=== PATIENT | male | born 1960 | race Two or more races ===

== ENCOUNTER 2023-02-08 06:59 | Day surgery (SDC) | payer OTHER ==
[~2023-02-08] VITALS: Ht 172.7 cm; Wt 72.6 kg
[~2023-02-08 06:59] MED LIST: CLONAZEPAM1 MG PO
[2023-02-08] MEDS ORDERED: POLY119PG PO (19:43)
[2023-02-08] MEDS ORDERED: NEURONTIN300 MG PO (19:43)
[2023-02-08] MEDS ORDERED: PERCOCET 5-3251 EACH PO (19:43)
== END 2023-02-08 21:25 | disposition home or self-care (01) ==
LOC: CIR.AMB 06:59
PROVIDERS: ATTEND Surgery
DX: K40.90 Unilateral inguinal hernia, without obstruction or gangrene, not specified as recurrent (principal); Z20.822 Contact with and (suspected) exposure to COVID-19
CPT/HCPCS: 49650; C1781

== ENCOUNTER 2023-10-23 10:48 | Inpatient (IN) | payer OTHER ==
[~2023-10-23] VITALS: Ht 172.7 cm; Wt 69.4 kg
[~2023-10-23 10:48] MED LIST changes: +NEURONTIN300 MG PO; +PERCOCET 5-3251 EACH PO; +POLY119PG PO
--- NOTE | 2023-10-23 11:06 | NUR ---
SE RECIBE PTE ALERTA Y ORIENTADO X3 EN AMBULANCIA EL MISMO REFIRIENDO QUE EL ESTEBAN DE JOSUE SE CALLO EN EL HOGAR CAUSANDO TRAUMA EN CADERA IZQUIERDA. AL MOMENTO PRESENTA DOLOR MEAGHAN. SE REALIZAN VITALES Y SE ACOMODA EN MARGARITA.
[2023-10-23] MEDS ORDERED: MORPHINE SULFATE 4 MG/ML VIAL IV ONE (11:15)
[2023-10-23] MEDS ORDERED: 0.9 % SODIUM CHLORIDE 1,000 ML IV SCH ×2 (11:15→17:45)
--- NOTE | 2023-10-23 11:49 | NUR ---
PTE EVALUADO POR DR LEA SIL[place] MED A PTE SE EDUCA A PTE SOBRE EL DON Y PTE REFIERE ENTENDER. SE LLEVA ACABO ORDENES BAJO MEDIDAS ACEPTICAS. SE REALIZA EKG Y SE LA NENA MUESTRAS DE LABS. PTE PEND A RESULTADOS DE LABS.
[2023-10-23 11:51] LABS: HEMATOCRIT 38.1 % (39.0-48.0); HEMOGLOBIN 13.4 g/dL (13-16.00); MEAN CORPUSCULAR HGB CONC 35.3 g/dl (32.0-36.0); RED BLOOD COUNT 3.74 M/uL (4.00-6.00)
[2023-10-23 11:53] LABS: PLATELET COUNT 72 K/uL (150-450)
[2023-10-23 12:06] LABS: INR 1.1; PARTIAL THROMBOPLASTIN TIME 30.9 SECONDS (22.0-34.0); PROTHROMBIN TIME 11.5 SECONDS (9.0-11.5)
[2023-10-23 12:32] LABS: ALBUMIN 3.3 gm/dL (3.4-5.0); BILIRUBIN TOTAL 2.63 mg/dL (0.3-1.2); CALCIUM 8.8 mg/dL (8.5-10.1); CREATININE SERUM 0.63 mg/dL (0.70-1.30); GFR 128.63; GLOBULINA 3.1 G/DL (2.4-3.5); POTASSIUM 3.55 mEq/L (3.5-5.1); TOTAL PROTEIN 6.4 gm/dL (6.4-8.2)
--- NOTE | 2023-10-23 13:15 | NUR ---
SE COLOCA CATETER JENKINS BAJO MEDIDAS ESTERILES. CATETER JENKINS PATENTE Y DRENANDO A GRAVEDAD.
--- NOTE | 2023-10-23 14:08 | NUR ---
DR HAYES Y DR TATE ORDENAN NUEVO TRATAMIENTO MEDICO SE LE ORIETNA A PACIENTE SOBRE EL MISMO Y VERBALIZA ENTENDER, SE LA NENA MUESTRAS BAJO MEDIDAS ASEPTICAS, PENDIENTE TERESA DE CULTIVOS NASALES YA QUE LOS MISMOS NO SE REALIZAN POR ER.
[2023-10-23] MEDS ORDERED: ACETAMINOPHEN 325 MG TABLET PO SCH (14:33)
[2023-10-23] MEDS ORDERED: TRAMADOL HCL 50 MG TABLET PO PRN (14:45)
[2023-10-23 14:49] LABS: ALBUMIN 3.2 gm/dL (3.4-5.0); BILIRUBIN TOTAL 2.6 mg/dL (0.3-1.2); BILIRUBIN,CONJUGATED 0.86 mg/dL (0.0-0.2); BILIRUBIN,UNCONJUGATED 1.74 mg/dL (0.0-0.6); TOTAL PROTEIN 6.5 gm/dL (6.4-8.2)
[2023-10-23] MEDS ORDERED: ACETAMINOPHEN 500 MG GEL..CAP PO PRN (17:45)
[2023-10-23] MEDS ORDERED: ONDANSETRON HCL 4 MG in 0.9 % SODIUM CHLORIDE 50 ML IV PRN (17:45)
[2023-10-23] MEDS ORDERED: CLONAZEPAM 0.5 MG TABLET PO SCH (21:00)
[2023-10-23 21:27] LABS: PH,URINE 7.5 (5.0-8.0); URINE APPEARANCE Clear; URINE BILIRRUBIN Negative (NEGATIVE); URINE BLOOD Moderate; URINE COLOR Orange; URINE GLUCOSE Negative (NEGATIVE); URINE LEUKOCYTE Trace; URINE NITRATE Negative; URINE PROTEIN Trace (NEGATIVE)
[2023-10-23 21:31] LABS: URINE BACTERIA 16.3 uL (0.0-1933); URINE RBC 276.5 uL (0.0-20.8); URINE WBC 7.4 uL (0.0-23.2)
[2023-10-23 21:37] LABS: COL EPI 231 SECONDS (82-175)
[2023-10-23 22:03] LABS: COL ADP 209 SECONDS (56-102)
[2023-10-24] MEDS ORDERED: PANTOPRAZOLE SODIUM 40 MG/VIAL VIAL IV SCH (09:00)
[2023-10-24] MEDS ORDERED: MORPHINE SULFATE 2 MG/ML CARTRIDGE IV PRN (19:15)
[2023-10-24] MEDS ORDERED: CLONAZEPAM 1 MG TABLET PO SCH (21:00)
[2023-10-24 22:05] LABS: HEMATOCRIT 35.8 % (39.0-48.0); HEMOGLOBIN 12.8 g/dL (13-16.00); MEAN CELL VOLUME 102.8 fL (80.0-100.00); MEAN CORPUSCULAR HEMOGLOBIN 36.8 pg (27.00-32.0); MEAN CORPUSCULAR HGB CONC 35.8 g/dl (32.0-36.0); RED BLOOD COUNT 3.48 M/uL (4.00-6.00); RED CELL DISTRIBUTION WIDTH 12.8 % (11.5-14.5)
[2023-10-24 22:09] LABS: PLATELET COUNT 89 K/uL (150-450)
[2023-10-24 22:30] LABS: COL EPI 165 SECONDS (82-175)
[2023-10-25 06:41] LABS: COL EPI 180 SECONDS (82-175)
[2023-10-25 08:42] LABS: COL ADP 123 SECONDS (56-102)
[2023-10-25] MEDS ORDERED: MULTIVIT-MIN/IRON FUM/FOLIC AC 1 TAB TABLET PO SCH (11:25)
[2023-10-25] MEDS ORDERED: IRON FUM,PS/FOLIC/BCOMP,C NO.9 1 CAP CAPSULE PO SCH (11:25)
[2023-10-25] MEDS ORDERED: VITAMIN B COMPLEX 1 EACH PO SCH (11:26)
[2023-10-25 12:03] LABS: COL ADP 106 SECONDS (56-102); COL EPI 195 SECONDS (82-175)
[2023-10-25 23:07] LABS: MEAN CELL VOLUME 101.5 fL (80.0-100.00); MEAN CORPUSCULAR HGB CONC 36.3 g/dl (32.0-36.0); RED BLOOD COUNT 3.25 M/uL (4.00-6.00); RED CELL DISTRIBUTION WIDTH 13.1 % (11.5-14.5)
[2023-10-25 23:16] LABS: PLATELET COUNT 117 K/uL (150-450)
[2023-10-25 23:17] LABS: MEAN CORPUSCULAR HEMOGLOBIN 36.9 pg (27.00-32.0)
[2023-10-26 11:28] LABS: ALBUMIN 3.3 gm/dL (3.4-5.0); BILIRUBIN TOTAL 2.02 mg/dL (0.3-1.2); CALCIUM 9.2 mg/dL (8.5-10.1); CREATININE SERUM 0.66 mg/dL (0.70-1.30); GFR 121.9; GLOBULINA 3.2 G/DL (2.4-3.5); POTASSIUM 3.3 mEq/L (3.5-5.1); TOTAL PROTEIN 6.5 gm/dL (6.4-8.2)
[2023-10-27] MEDS ORDERED: POLYMYXIN B SULFATE 500,000 U VIAL IR ONE (10:45)
[2023-10-27] MEDS ORDERED: TRANEXAMIC ACID 100MG/1ML (1000MG) AMPUL IV ONE ×2 (10:45)
[2023-10-27] MEDS ORDERED: CEFAZOLIN SODIUM 1,000 MG VIAL IV ONE (10:45)
[2023-10-27] MEDS ORDERED: VANCOMYCIN HCL 1,000 MG VIAL IR ONE (10:45)
[2023-10-27] MEDS ORDERED: CEFAZOLIN SODIUM 2,000 MG in 0.9 % SODIUM CHLORIDE 100 ML IV SCH (11:00)
[2023-10-27] MEDS ORDERED: PANTOPRAZOLE SODIUM 40 MG TABLET.DR PO SCH (13:11)
[2023-10-27] MEDS ORDERED: PROMETHAZINE HCL 50 MG/ML AMPUL IM PRN (13:15)
[2023-10-27] MEDS ORDERED: TRAMADOL HCL 50 MG TABLET PO PRN (13:15)
[2023-10-27] MEDS ORDERED: SODIUM CHLORIDE 0.45 % 1,000 ML IV SCH (13:15)
[2023-10-27] MEDS ORDERED: ONDANSETRON HCL 2 MG/ML VIAL IV PRN (13:15)
[2023-10-27] MEDS ORDERED: MEPERIDINE HCL/PF 50 MG/ML VIAL IM PRN (13:15)
[2023-10-27] MEDS ORDERED: ONDANSETRON 4 MG TAB.RAPDIS PO PRN (13:15)
[2023-10-27] MEDS ORDERED: SUGAMMADEX SODIUM 200 MG/2 ML VIAL IV ONE (13:19)
[2023-10-27] MEDS ORDERED: CEFAZOLIN SODIUM 1,000 MG VIAL ONE (16:50)
[2023-10-27] MEDS ORDERED: CEFAZOLIN SODIUM 1,000 MG VIAL IV SCH (17:00)
[2023-10-27] MEDS ORDERED: KETOROLAC TROMETHAMINE 10 MG TABLET PO SCH (21:00)
[2023-10-28 07:52] LABS: HEMATOCRIT 25.4 % (39.0-48.0); MEAN CELL VOLUME 102.9 fL (80.0-100.00); MEAN CORPUSCULAR HGB CONC 36.3 g/dl (32.0-36.0); RED BLOOD COUNT 2.47 M/uL (4.00-6.00)
[2023-10-28 07:53] LABS: HEMOGLOBIN 9.2 g/dL (13-16.00); MEAN CORPUSCULAR HEMOGLOBIN 37.2 pg (27.00-32.0); PLATELET COUNT 116 K/uL (150-450)
[2023-10-28] MEDS ORDERED: RIVAROXABAN 10 MG TAB PO SCH (09:00)
[2023-10-29] MEDS ORDERED: SENNA/DOCUSATE SODIUM 1 TAB TABLET PO SCH (09:00)
[2023-10-29] MEDS ORDERED: SOD FERRIC GLUC COMPLX/SUCROSE 125 MG in 0.9 % SODIUM CHLORIDE 100 ML IV SCH (09:00)
[2023-10-29 10:31] LABS: HEMATOCRIT 24.6 % (39.0-48.0); MEAN CELL VOLUME 101.8 fL (80.0-100.00); MEAN CORPUSCULAR HEMOGLOBIN 37.1 pg (27.00-32.0); MEAN CORPUSCULAR HGB CONC 36.4 g/dl (32.0-36.0); RED BLOOD COUNT 2.42 M/uL (4.00-6.00); RED CELL DISTRIBUTION WIDTH 12.4 % (11.5-14.5)
[2023-10-29 11:08] LABS: PLATELET COUNT 109 K/uL (150-450)
[2023-10-29] MEDS ORDERED: PROMETHAZINE HCL 50 MG/ML AMPUL IM PRN (20:15)
[2023-10-29] MEDS ORDERED: MEPERIDINE HCL/PF 50 MG/ML VIAL IM PRN (20:15)
[2023-10-30 08:03] LABS: HEMATOCRIT 21.9 % (39.0-48.0); MEAN CELL VOLUME 101.1 fL (80.0-100.00); MEAN CORPUSCULAR HGB CONC 36.6 g/dl (32.0-36.0); RED BLOOD COUNT 2.16 M/uL (4.00-6.00); RED CELL DISTRIBUTION WIDTH 12.7 % (11.5-14.5)
[2023-10-30 08:04] LABS: PLATELET COUNT 109 K/uL (150-450)
[2023-10-30 09:35] LABS: HEMATOCRIT 24.9 % (39.0-48.0); MEAN CELL VOLUME 100.3 fL (80.0-100.00); MEAN CORPUSCULAR HEMOGLOBIN 36.6 pg (27.00-32.0); MEAN CORPUSCULAR HGB CONC 36.5 g/dl (32.0-36.0); RED BLOOD COUNT 2.48 M/uL (4.00-6.00); RED CELL DISTRIBUTION WIDTH 12.7 % (11.5-14.5)
[2023-10-30 09:36] LABS: HEMOGLOBIN 9.1 g/dL (13-16.00); PLATELET COUNT 117 K/uL (150-450)
[2023-10-30 15:24] LABS: CALCIUM 8.5 mg/dL (8.5-10.1); CREATININE SERUM 0.62 mg/dL (0.70-1.30); GFR 131.02
[2023-10-30 15:53] LABS: POTASSIUM 2.77 mEq/L (3.5-5.1)
[2023-10-30] MEDS ORDERED: POTASSIUM CHLORIDE IN WATER 100 ML IV ONE (17:30)
[2023-10-31 07:21] LABS: ALBUMIN 2.1 gm/dL (3.4-5.0); BILIRUBIN TOTAL 1.1 mg/dL (0.3-1.2); CALCIUM 8.2 mg/dL (8.5-10.1); CREATININE SERUM 0.7 mg/dL (0.70-1.30); GFR 113.9; GLOBULINA 2.9 G/DL (2.4-3.5); POTASSIUM 3.07 mEq/L (3.5-5.1)
[2023-10-31] MEDS ORDERED: POTASSIUM CHLORIDE 20MEQ/100ML H2O PB IV STA (10:04)
[2023-11-01 06:57] LABS: CALCIUM 8.1 mg/dL (8.5-10.1); CREATININE SERUM 0.59 mg/dL (0.70-1.30); GFR 138.74
[2023-11-01 07:48] LABS: POTASSIUM 2.97 mEq/L (3.5-5.1)
[2023-11-01] MEDS ORDERED: POTASSIUM CHLORIDE IN WATER 40 MEQ/100 ML PIGGYBAG IV SCH (09:59)
[2023-11-01] MEDS ORDERED: POTASSIUM CHLORIDE 8 MEQ TABLET PO SCH (10:00)
[2023-11-01] MEDS ORDERED: CLONAZEPAM 1 MG TABLET PO SCH (21:00)
[2023-11-02 02:03] LABS: CALCIUM 8.2 mg/dL (8.5-10.1); CREATININE SERUM 0.68 mg/dL (0.70-1.30); GFR 117.77; POTASSIUM 3.51 mEq/L (3.5-5.1)
[2023-11-02 06:02] LABS: ALBUMIN 2.2 gm/dL (3.4-5.0); BILIRUBIN TOTAL 0.97 mg/dL (0.3-1.2); CALCIUM 8.3 mg/dL (8.5-10.1); CREATININE SERUM 0.62 mg/dL (0.70-1.30); GFR 131.02; GLOBULINA 2.9 G/DL (2.4-3.5); POTASSIUM 3.42 mEq/L (3.5-5.1); TOTAL PROTEIN 5.1 gm/dL (6.4-8.2)
== END 2023-11-02 18:52 | DRG 522 ==
LOC: ER 10:48 → MEDI 18:19 → SURH 10-27 15:59
PROVIDERS: General Practice; Orthopaedic Surgery; ADMIT Internal Medicine; ATTEND Internal Medicine
PROC: BQ21ZZZ Computerized Tomography (CT Scan) of Left Hip (ICD-10-PCS; 2023-10-23)
PROC: BW40ZZZ Ultrasonography of Abdomen (ICD-10-PCS; 2023-10-24)
PROC: 30233R1 Transfusion of Nonautologous Platelets into Peripheral Vein, Percutaneous Approach (ICD-10-PCS; 2023-10-25)
PROC: 01NF0ZZ Release Sciatic Nerve, Open Approach (ICD-10-PCS; 2023-10-27)
PROC: 0MTM0ZZ Resection of Left Hip Bursa and Ligament, Open Approach (ICD-10-PCS; 2023-10-27)
PROC: 0SRB0JZ Replacement of Left Hip Joint with Synthetic Substitute, Open Approach (ICD-10-PCS; principal; 2023-10-27 09:45)
DX: S72.002A Fracture of unspecified part of neck of left femur, initial encounter for closed fracture (principal); D69.3 Immune thrombocytopenic purpura; D62 Acute posthemorrhagic anemia; K70.9 Alcoholic liver disease, unspecified